=== PATIENT | female | born 1955 | race Two or more races ===

== ENCOUNTER 2020-09-22 09:25 | Emergency (ER) | payer OTHER ==
[2020-09-22 09:49] VITALS: BP 134/86; PULSE 89; TEMP 99; BMI 28.3
[2020-09-22] MEDS ORDERED: ACETAMINOPHEN 325 MG TABLET (FP) PO ONE (10:13)
[2020-09-22] MEDS ORDERED: KETOROLAC TROMETHAMINE 30 MG/1 ML VIAL IM ONE (10:13)
[2020-09-22] MEDS ORDERED: ACETAMINOPHEN 325 MG TABLET (FP) ONE (10:20)
[2020-09-22] MEDS ORDERED: KETOROLAC TROMETHAMINE 15 MG/ML VIAL ONE ×2 (10:20→10:45)
== END 2020-09-22 10:55 | disposition home or self-care (01) ==
LOC: FER 09:25
PROC: 3E0233Z Introduction of Anti-inflammatory into Muscle, Percutaneous Approach (ICD-10-PCS; principal; 2020-09-22)
DX: S46.219A Strain of muscle, fascia and tendon of other parts of biceps, unspecified arm, initial encounter (principal)
CPT/HCPCS: 73030-TC-LT-FY; 73030-TC-RT-FY; 73060-TC-LT-FY; 73060-TC-RT-FY; 99284-25